=== PATIENT | female | born 1975 | race Caucasian/White ===

== ENCOUNTER → 2016-09-05 | Outpatient (REF) | payer OTHER ==
[~2016-09-05] MED LIST: IBP200T PO; ONDN4T PO; PREN1TAB39 PO
[2016-09-05 12:35] LABS: BASOPHILS % (AUTO) 0 % (0-2); EOSINOPHILS # (AUTO) 0.3 10^3uL; EOSINOPHILS % (AUTO) 4 % (0-4); LYMPHOCYTES # (AUTO) 2.3 X10^3; MEAN CORPUSCULAR HEMOGLOBIN 27.5 PG (26.0-34.0); MEAN CORPUSCULAR HGB CONC 33.8 g/dL (31.0-37.0); MEAN CORPUSCULAR VOLUME 81 FL (80-100); MEAN PLATELET VOLUME 10.3 FL (6.0-9.5); MONOCYTES # (AUTO) 0.8 X10^3; MONOCYTES % (AUTO) 10 % (3-11); NEUTROPHILS # (AUTO) 4.3 X10^3; NEUTROPHILS % (AUTO) 56 % (51-67); PLATELET COUNT 303 10^3uL (150-450); WHITE BLOOD COUNT 7.75 10^3uL (4.0-11.0)
[2016-09-05 13:06] LABS: ALBUMIN 4.3 g/dL (3.4-5.0); ANION GAP 15.6 MEQ/L (3-15); TOTAL PROTEIN 7.1 g/dL (6.4-8.5)
== END ==
LOC: LAB 11:14
PROVIDERS: ATTEND Nurse Practitioner Family
DX: Z01.419 Encounter for gynecological examination (general) (routine) without abnormal findings (principal); N92.0 Excessive and frequent menstruation with regular cycle; Z13.6 Encounter for screening for cardiovascular disorders; N89.8 Other specified noninflammatory disorders of vagina
CPT/HCPCS: 80053; 80061; 84443; 85025; 87210

== ENCOUNTER → 2016-09-11 | Outpatient (CLI) | payer OTHER | LOC: RAD 14:50 | PROVIDERS: ATTEND Nurse Practitioner Family | DX: N92.0 Excessive and frequent menstruation with regular cycle (principal); Z97.5 Presence of (intrauterine) contraceptive device; D26.1 Other benign neoplasm of corpus uteri | CPT/HCPCS: 76830; 76856 ==